=== PATIENT | female | born 1945 | race Caucasian/White ===

== ENCOUNTER 2016-08-11 06:42 | Day surgery (SDC) | payer MEDICARE, BC ==
[2016-08-09 14:58] LABS: BASOPHILS 0.4 %; BASOPHILS ABSOLUTE 0.02 10/3/uL (0.0-0.16); EOSINOPHILS 2.7 %; EOSINOPHILS ABSOLUTE 0.14 10/3/uL (0.0-0.53); HEMOGLOBIN 13.6 g/dL (12.0-16.0); LYMPHOCYTES 54.4 %; LYMPHOCYTES ABSOLUTE 2.79 10/3/uL (0.67-4.30); MEAN CORPUSCULAR HEMOGLOB 28.5 pg (26.0-34.0); MEAN PLATELET VOLUME 10.3 fL (9.2-13.0); MONOCYTES 11.1 %; MONOCYTES ABSOLUTE 0.57 10/3/uL (0.21-1.20); NEUTROPHILS 31.4 %; NEUTROPHILS ABSOLUTE 1.61 10/3/uL (2.02-8.40); PLATELET COUNT 200 10/3/uL (150-400)
[2016-08-09 14:59] LABS: MANUAL DIFF NO %; MEAN CORPUS HGB CONC 33.2 g/dL (32.0-36.0); MEAN CORPUSCULAR VOLUME 85.8 fL (80-100); RED CELL COUNT 4.78 10/6/uL (4.0-5.6); WHITE BLOOD CELLS 5.1 10/3/uL (4.5-10.5)
[2016-08-09 15:10] LABS: A/G RATIO 1.4 (0.7-1.9); ALBUMIN 3.8 G/DL (3.5-5.0); BUN (BLOOD UREA NITROGEN) 11 MG/DL (6-23); CALCIUM, SERUM 9.3 MG/DL (8.5-10.4); CHLORIDE, SERUM 108 MMOL/L (96-112); CREATININE 0.87 MG/DL (0.55-1.02); GFR AFRICAN AMERICAN 79 ML/MIN (>=60); GFR NON AFRICAN AMERICAN 68 ML/MIN (>=60); GLOBULIN 2.8 G/DL (2.5-4.1); GLUCOSE, SERUM 88 MG/DL (60-99); POTASSIUM, SERUM 4.1 MMOL/L (3.5-5.3); SGOT(AST) 18 U/L (5-40); SGPT(ALT) 25 U/L (5-65); SODIUM, SERUM 142 MMOL/L (135-148); TOTAL BILIRUBIN 0.4 MG/DL (0-1.2); TOTAL PROTEIN 6.6 G/DL (6.0-8.5)
[2016-08-09 15:11] LABS: ALKALINE PHOSPHATASE 59 U/L (45-117); CO2 (CARBON DIOXIDE) 31 MMOL/L (24-34)
--- NOTE | ~2016-08-11 | OP ---
Record Of Operation [facility] [address] [place]. [address] NAME: BRYN TRACY : 49 STATUS : [facility]#: [id number] AGE: 71 ADM/REG DATE : 08/11/16 MR#: [id number] REPORT SERV DATE: 08/11/16 DICTATED BY: ANJELICA VALENTINE DATE: 08/11/16 REPORT STATUS : Draft TRANSCRIBED BY: MODG[employer] DATE: 08/11/16 DATE OF PROCEDURE: 08/11/2016 PREOPERATIVE DIAGNOSIS: Left-sided invasive ductal cancer. POSTOPERATIVE DIAGNOSIS: Left-sided invasive ductal cancer. PROCEDURE: 1. Left breast intraoperative ultrasound for tumor mapping. 2. Left breast lumpectomy. 3. Left axillary sentinel lymph node biopsy. INDICATION FOR THE PROCEDURE: Ms Tracy is a 71-year-old very healthy female, who had an asymptomatic screening mammogram showing issue on the left side. She has a palpable mass at 3 o'clock position, 4 cm from the nipple measuring 1.5 cm. Biopsy in my office showed an invasive ductal cancer grade 2, ER/PA positive, HER2 negative with a growth fraction of 10%. The patient is strongly motivated for breast preservation. We will move forward with that today. She did present for lymphoscintigraphy scan yesterday showing good uptake in a single lymph node in the left axilla. OPERATIVE FINDINGS: After appropriate consent was noted on the chart, the patient was taken to the operating room in supine position. She was placed under general anesthesia without any complication. The exam was performed and the tumor very vaguely palpable in the left breast. Ultrasound was utilized to note this on the skin to ensure good location for the incision. The tumor appears to be deep in the breast close to the pectoralis muscle. The left breast and axilla were prepped and draped in sterile fashion. An incision made in an antiradial fashion overlying the tumor. Sharp dissection was carried down to the breast parenchyma and dissection carried out around the tumor and down to the pectoralis fascia. The fascia was actually taken off the muscle with the muscle intact. The specimen was marked with sutures and sent for immediate evaluation by Pathology. Grossly, the tumor appears to be in the center or lumpectomy specimen is closest to the posterior lateral margin. Additional posterolateral margin was taken. The wound was copiously irrigated with warm saline. Hemostasis was achieved. Local anesthetic infiltrated in the skin and soft tissues and the incision was closed in two layers of Monocryl. The left axillary sentinel node biopsy was performed in routine fashion. The gamma probe was utilized to find the area of highest uptake and a small incision made in the axilla with a #15 blade. Sharp dissection was carried down to the axillary fat pad and the gamma probe utilized to excise the single lymph node with an ex-vivo count of approximately 2400. The lymph node was soft, physiologically normal with no firm areas. It was sent for permanent pathology by [facility]. The wound was copiously irrigated with warm saline. Hemostasis was achieved. Local anesthetic was infiltrated in the skin and soft tissue. The gamma probe was replaced into the axilla prior to closing and the background count was 0. The incision was closed in two layers of Monocryl. The skin was cleansed and dried. Dermabond was placed on both incisions and burn fluff and a binder placed on the patient prior to awakening. At the end the case, all counts were correct. Record Of Operation [address] [address] NAME: BRYN TRACY : 49 STATUS : [facility] PAT#: [id number] AGE: 71 ADM/REG DATE : 08/11/16 MR#: [id number] REPORT SERV DATE: 08/11/16 DICTATED BY: ANJELICA VALENTINE DATE: 08/11/16 REPORT STATUS : Draft TRANSCRIBED BY: ADELFO DATE: 08/11/16 ESTIMATED BLOOD LOSS: 40 mL. COMPLICATIONS: None. SPECIMEN: 1. Left breast segment at 3 o'clock. 2. New left breast posterior lateral margin. 3. Left axillary sentinel node x1. BW/ADELFO Anjelica Valentine MD / [id number] CC: MD Louie Cortez D.O. Andrew Jones, M.D. [facility]
[~2016-08-11 06:42] MED LIST: PAX20 PO
== END 2016-08-11 12:52 | disposition home or self-care (01) ==
LOC: SDC 06:42
PROVIDERS: Surgery Surgical Oncology
PROC: 07B60ZZ Excision of Left Axillary Lymphatic, Open Approach (ICD-10-PCS; 2016-08-11)
PROC: 0HBU0ZZ Excision of Left Breast, Open Approach (ICD-10-PCS; principal; 2016-08-11 08:30)
DX: C50.812 Malignant neoplasm of overlapping sites of left female breast (principal); Z17.0 Estrogen receptor positive status [ER+]; M19.90 Unspecified osteoarthritis, unspecified site; F41.9 Anxiety disorder, unspecified; Z79.899 Other long term (current) drug therapy; Z88.2 Allergy status to sulfonamides; Z87.891 Personal history of nicotine dependence; Z87.01 Personal history of pneumonia (recurrent); Z90.49 Acquired absence of other specified parts of digestive tract; Z90.710 Acquired absence of both cervix and uterus; Z98.890 Other specified postprocedural states
CPT/HCPCS: 71020; 78195; 80053; 85025; 88305; 88307; 88342; 93005; A9541; J0690; J2250; J2370; J2405; J3010